=== PATIENT | male | born 1940 | race Hispanic/Latino ===

== ENCOUNTER 2019-12-11 17:06 | Emergency (ER) | payer MEDICARE, OTHER ==
[~2019-12-11] VITALS: Ht 170.2 cm; Wt 100.7 kg
--- NOTE | 2019-12-11 19:04 | Diagnostic Imaging Report ---
KNEE RIGHT THREE VIEWS - Multiple views HISTORY: ^fall, pain ^20191211 ^1819 COMPARISON: None available. FINDINGS: Bones: No acute displaced fracture. Osseous alignment is within normal limits. Joints: The joint spaces are well-maintained. Soft tissues: Vascular calcifications are present. IMPRESSION: No acute radiographic abnormality. Signed by: Maged Sanz MD on 12/11/2019 7:01 PM
--- NOTE | 2019-12-11 19:04 | Diagnostic Imaging Report ---
KNEE LEFT THREE VIEWS - Multiple views HISTORY: ^fall, pain ^20191211 ^1819 COMPARISON: None available. FINDINGS: Bones: No acute displaced fracture. Osseous alignment is within normal limits. Joints: The joint spaces are well-maintained. Soft tissues: Vascular calcifications are present IMPRESSION: No acute radiographic abnormality. Signed by: Maged Sanz MD on 12/11/2019 7:00 PM
== END 2019-12-11 19:42 | disposition home or self-care (01) ==
LOC: ER 17:06
DX: S80.212A Abrasion, left knee, initial encounter (principal); S80.211A Abrasion, right knee, initial encounter; W01.0XXA Fall on same level from slipping, tripping and stumbling without subsequent striking against object, initial encounter; Y93.H2 Activity, gardening and landscaping; Y92.007 Garden or yard of unspecified non-institutional (private) residence as the place of occurrence of the external cause; I10 Essential (primary) hypertension; E11.9 Type 2 diabetes mellitus without complications
CPT/HCPCS: 99283